=== PATIENT | female | born 1960 | race Caucasian/White ===

== ENCOUNTER → 2017-03-17 | Outpatient (REF) | payer MEDICARE, OTHER | LOC: M LAB REF 16:18 | PROVIDERS: ATTEND Physician Assistant | DX: R30.0 Dysuria (principal) ==

== ENCOUNTER → 2017-04-30 | Outpatient (REF) | payer MEDICARE, OTHER | LOC: M LAB REF 13:11 | PROVIDERS: ATTEND Nurse Practitioner Women's Health | DX: N39.0 Urinary tract infection, site not specified (principal) ==

== ENCOUNTER → 2020-03-28 | Outpatient (CLI) | payer OTHER ==
--- NOTE | 2020-05-11 15:11 | ECHO ---
DATE OF PROCEDURE: 03/28/2020 Age: 60 Gender: Female Height: 170 cm Weight: 74.8 kg REFERRING PHYSICIAN: Dr. Priya Soto. INDICATION: Abnormal result of cardiovascular function study. MEASUREMENTS: 2D Measurements: Interventricular septum 0.92 cm Posterior wall 0.88 cm Left ventricle diastole 4.6 cm Left atrium 3.2 cm Aortic root 3.0 cm Aortic annulus 3.2 cm Inferior vena cava 1.7 cm Right ventricle 2.9 cm Left atrial volume index 16 Doppler Measurements: No aortic stenosis No aortic regurgitation Aortic valve velocity 127 cm/s LVOT velocity 102 cm/s No mitral regurgitation No mitral stenosis Mitral E velocity 85.7 cm/s Mitral A velocity 21.4 cm/s ? Mitral deceleration time 225 msec No tricuspid regurgitation No pulmonic regurgitation Pulmonary acceleration time 123 msec MITRAL ANNULAR TISSUE DOPPLER E prime septal 7.2 cm/s, E prime lateral 9.8 cm/s DESCRIPTION: Rhythm was sinus. Image quality was fair. No pericardial effusion. This was a 2D, M-mode, color flow Doppler, and pulsed wave Doppler examination including mitral annular tissue Doppler. CONCLUSIONS: * Normal left ventricle internal dimensions and wall thickness. Normal regional LV wall motion and wall thickening. Normal LV systolic function. LVEF 60% by visual estimate. Normal peak longitudinal strain pattern. Normal LV diastolic function for age. * Mild aortic valve sclerosis if a 3-cuspid aortic valve. No aortic regurgitation. * Otherwise normal appearing echocardiogram Doppler findings. MTDD
== END ==
LOC: M CARPUL 10:38
PROVIDERS: ATTEND Internal Medicine
DX: R94.39 Abnormal result of other cardiovascular function study (principal); I35.8 Other nonrheumatic aortic valve disorders